=== PATIENT | male | born 1960 | race Two or more races ===

== ENCOUNTER 2025-04-07 08:10 | Outpatient (CLI) | payer OTHER ==
[~2025-04-07] VITALS: Ht 188 cm; Wt 106.6 kg
[2025-04-07] MEDS: REGADENOSON 0.4 MG/5 ML SYRG IV ONE ×2 (10:16)
--- NOTE | 2025-04-08 11:45 | DVHSR ---
APPROVED REPORT Exam: Nuclear Stress Test Indication: Pre-op BMI: 0 Medical History Allergies: No known drug allergies Stress Test Details Stress Test: Pharmacologic stress testing performed using 0.4 mg of regadenoson per 5 mL given IV over 10 seconds. HR Resting HR: 56 bpm Max Heart Rate (APMHR): 154.301896 bpm Max HR Achieved: 96 bpm Target HR (85% APMHR): 130.227176 bpm % of APMHR: 62.34 Recovery HR: 76 bpm BP Resting BP: 115/75 mmHg Recovery BP: 112/67 mmHg ECG Resting ECG: Sinus Bradycardia Clinical Reason for Termination: Completed protocol Nurse Comments Recieved pt. from [facility]. A/Ox4 on RA. Connected to satellite project site monitor, VS stable. PIV flushes well. Reviewed POC. Pt. verbalized understanding of procedure including risks and side effects, agrees for stress testing. Lexiscan stress test performed per protocol. Acopio administered Cardiolite. Pt. tolerated well. Pt. stable, no change on exam. VS returned to baseline. Transferred to [facility] via wheelchair w/ tech. Stress ECG Conclusion lvef 55% stress imaging with decreased quality imaging no major ischemia noted minor inferior wall defect/ artifact suspected NM EXAM: Myocardial Perfusion REST/STRESS Imaging Protocol: Rest Tc-99m/Stress Tc-99m 1 day Resting Data Rest SPECT myocardial perfusion imaging was performed in supine position 60 minutes following the intravenous injection of 10.5 mCi of Tc-99m Sestamibi. Time of rest injection: 08:50 Date: 04/07/2025 Time of rest imagin:50 Date: 04/07/2025 Administration Route: IV Administration Site: Right Arm Pharmacologic Stress Pharmacologic stress test was performed by injecting Regadenoson 0.4 mg IV push followed by the intravenous injection of 30.2 mCi of Tc-99m Sestamibi. Time of stress injection: 10:15 Date: 04/07/2025 Time of stress imagin:15 Date: 04/07/2025 Administration Route: IV Administration Site: Right Arm Gated Stress SPECT was performed 60 minutes after stress injection. The images were gated to evaluate regional wall motion and calculate left ventricular ejection fraction. Stress only was performed in the Supine position. Nuclear Conclusion Nuclear Findings: negative for ischemia lvef 55% stress imaging with decreased quality imaging no major ischemia noted minor inferior wall defect/ artifact suspected
== END 2025-04-07 17:00 | disposition home or self-care (01) ==
LOC: XYW 08:10 → EDUNIT# 08:30 → XYW 17:00
PROVIDERS: ATTEND Internal Medicine
DX: Z01.810 Encounter for preprocedural cardiovascular examination (principal); K57.92 Diverticulitis of intestine, part unspecified, without perforation or abscess without bleeding; R00.1 Bradycardia, unspecified
CPT/HCPCS: 78452; 93017; A9500; J2785

== ENCOUNTER 2025-04-15 12:18 | Day surgery (SDC) | payer OTHER ==
[2025-04-14 09:42] LABS: Hematocrit 41.8 % (41.0-53.0); Hemoglobin 14.0 g/dL (13.5-17.5); Mean Corpuscular Hemoglobin 27.4 pg (28.0-32.0); Mean Corpuscular Volume 82.1 fL (80.0-100.0); Nucleated Red Blood Cells % 0.1 %
[2025-04-14 09:58] LABS: INR 0.97 (0.9-1.15); Partial Thromboplastin Time 30.5 SEC (24.5-34.5); Prothrombin Time 10.3 sec (9.3-11.8)
[2025-04-14 10:05] LABS: Alanine Aminotransferase 27 U/L (7-40); Albumin 4.2 g/dL (3.2-4.8); Alkaline Phosphatase 83 U/L (46-116); Anion Gap 9 (5-15); BUN/Creatinine Ratio 9.9 (10.0-20.0); Calcium 9.5 mg/dL (8.7-10.4); Chloride 102 mmol/L (98-107); Glucose 98 mg/dL (74-106); Potassium 4.3 mmol/L (3.5-5.1); Sodium 142 mmol/L (136-145); Total Protein 7.0 g/dL (5.7-8.2)
[2025-04-14 10:06] LABS: Bilirubin, Total 0.5 mg/dL (0.2-1.0)
[2025-04-14 10:08] LABS: Blood Urea Nitrogen 9 mg/dL (9-23); Carbon Dioxide 31 mmol/L (20-31)
[2025-04-14 10:19] LABS: Urine Protein, UAD Negative (Negative)
[~2025-04-15] VITALS: Ht 188 cm; Wt 106.6 kg
[~2025-04-15 12:18] MED LIST: ALBU0.084 IN; ATOR20TA50 PO; COEN400C8 OR; CYCL-837 PO; DILT-29 PO; HYDR25TA5 GT; IBUP-1454 PO; KRIL300C2 PO; LIDOCAINE VISCOUS 2% 15ML UD ONE; MIDAZOLAM HCL 5 MG/ML-1ML VIAL ONE; PANT40TA2 PO; SODIUM CHLORIDE LOCK 10 ML ONE; diphenhydrAMINE HCL 50 MG/1 ML VL ONE; fentaNYL CITRATE 100 MCG/2 ML VL ONE
[2025-04-15 14:00] VITALS: PULSE 54; RESP 18; O2SAT 97
[2025-04-15 14:20] VITALS: PULSE 53; RESP 13; TEMP 97.1; O2SAT 97
--- NOTE | 2025-04-15 14:30 | DVHOP2 ---
Operative Report DATE OF OPERATION: 04/15/25 PROCEDURE: Upper Endoscopy with biopsy PREOPERATIVE INDICATION: The patient is a 64 -year-old male undergoing endoscopy for atypical chest discomfort and GERD POSTOPERATIVE DIAGNOSES: 1. 2-3 cm sliding-type hiatal hernia with slightly irregular squamocolumnar junction and short-segment extension of columnar epithelium into the distal esophagus for 1-2 cm and biopsies were obtained 2. Mild gastritis otherwise normal examination of the 2nd part of the duodenal, duodenal and gastric biopsies were obtained 3. Patient had multiple benign-appearing gastric polyp seen in the body and the fundus of the stomach and these were removed via hot snare polypectomy PROCEDURE PERFORMED BY: Chana Evangelista GI NURSE: Estephania SCOPE: Olympus videoendoscope. ASA CLASS: 2 PREOPERATIVE MEDICATIONS: Versed 4 mg, Fentanyl 100 mcg, Benadryl 50 mg I administered moderate sedation throughout this _12_ minutes procedure. An independent trained observer pushed medications at my direction, and monitored the patient's level of consciousness and physiological status throughout. PROCEDURE IN DETAIL: After obtaining an informed consent, the patient was placed on left lateral decubitus position. The patient was then sedated with the above medications. A bite block was placed between his teeth. The endoscope was then passed through the oropharynx, into the esophagus, and through the stomach and pylorus up to the second and third part of the duodenum. The endoscope was then withdrawn. The 2nd and 3rd part of the duodenal and the duodenal bulb were normal. Duodenal biopsies were obtained. There was good bile drainage The pre-pyloric area antrum and body showed minimal gastritis. Gastric biopsies were obtained. There were multiple benign-appearing gastric fundic polyps seen in the body and the fundus of the stomach Multiple polyps were removed via hot snare polypectomy and some removed by cold biopsy forceps and several specimens were retrieved Retroflexion the fundus and cardia were otherwise normal as was the angularis. The endoscope was then withdrawn into distal esophagus Patient had a 2-3 cm sliding-type hiatal hernia with slightly irregular squamocolumnar junction and short-segment extension of columnar epithelium into the distal esophagus for 1-2 cm Distal esophageal biopsies were obtained. The remaining distal and proximal esophagus and oropharynx were unremarkable The patient tolerated the procedure well without difficulty. COMPLICATIONS : None SPECIMENS: Biopsies Gastric biopsies GE junction biopsies Gastric polyps DISPOSITION: Stable D/C to home PLAN: 1. Await for biopsy result 2. Will place pt on Protonix 40 mg p.o. daily 3. Lifestyle and dietary modifications for GERD 4. Outpatient follow up with me in 4-6 weeks to review results and discuss further management CHANA EVANGELISTA MD Apr 15, 2025 14:30
[2025-04-15 15:00] VITALS: BP 116/70; PULSE 50; RESP 11; O2SAT 95
== END 2025-04-15 15:18 | disposition home or self-care (01) ==
LOC: EDUNIT# → GI 12:18
PROVIDERS: ATTEND Internal Medicine Gastroenterology
DX: R07.89 Other chest pain (principal); K29.50 Unspecified chronic gastritis without bleeding; K31.7 Polyp of stomach and duodenum; K21.00 Gastro-esophageal reflux disease with esophagitis, without bleeding; K44.9 Diaphragmatic hernia without obstruction or gangrene; I10 Essential (primary) hypertension; E78.00 Pure hypercholesterolemia, unspecified; Z79.899 Other long term (current) drug therapy; Z87.891 Personal history of nicotine dependence; Z98.890 Other specified postprocedural states; Z91.018 Allergy to other foods
CPT/HCPCS: 36415; 43239; 43251; 80053; 81001; 85025; 85610; 85730; 88305; 88313; 88342; A4649; J1200; J2250; J3010; J7030; 99152